=== PATIENT | female | born 1940 | race Caucasian/White ===

== ENCOUNTER 2017-02-25 05:52 | Day surgery (SDC) | payer MEDICARE, OTHER ==
[~2017-02-25] VITALS: Ht 149.9 cm; Wt 71.6 kg
[~2017-02-25 05:52] MED LIST: ASPIRIN EC81 MG PO; ATENOLOL100 MG PO; C-PAP; CALCIUM600 M1 PO; CORTEF10 MG PO; CORTEF5 MG PO; COUMADIN2 MG PO; DELSYM30 MG/5 M1 PO; DOXYCYCLINE HY100 M3 PO; ELIQ; FUROSEMIDE20 MG PO; HYDROCORTISONE5 M1 PO; IMODIUM2 MG PO; K-DUR20 ME2 PO; LASIX20 MG PO; LEVOTHROID100 MCG PO; LEVOTHROID125 MCG PO; LEVOTHYROXINE50 MC3 PO; LIVALO2 MG PO; NORVASC10 M2 PO; PANTOPRAZOLE SO20 MG PO; PANTOPRAZOLE SO40 M3 PO; PRAVASTATIN SOD40 M1 PO; PRIMIDONE50 M1 PO; PROMETH-CODEIN 65 ML PO; SUCRALFATE1 G PO; TENORMIN50 M1 PO; TERAZOSIN HCL1 M1 PO; TYLENOL PM EX-1 EAC4 PO; VALSARTAN-HCTZ1 EA13 PO; VALSARTAN-HCTZ1 EAC9 PO; VITAMIN D31000 UNI4 PO; WARFARIN SODIUM PO
[2017-02-25 07:45] LABS: INR 1.1 INR (0.9-1.1); PROTHROMBIN TIME 12.4 SECONDS (9.0-13.6)
[2017-02-26] MEDS ORDERED: HYDROCODON-ACE1 EA16 PO (07:17)
[2017-02-26] MEDS ORDERED: MACROBID 100 M100 M1 PO (11:05)
== END 2017-02-25 13:00 ==
LOC: SRG 05:52 → SHSC 05:52 → SRG 06:00 → ORW 08:36 → PACU 09:08 → SHSC 10:15 → SRG 13:00
PROVIDERS: Surgery
PROC: 0FT44ZZ Resection of Gallbladder, Percutaneous Endoscopic Approach (ICD-10-PCS; principal; 2017-02-25)
DX: K81.1 Chronic cholecystitis (principal); I10 Essential (primary) hypertension; I48.91 Unspecified atrial fibrillation; G47.30 Sleep apnea, unspecified; J44.9 Chronic obstructive pulmonary disease, unspecified; E78.5 Hyperlipidemia, unspecified; E03.9 Hypothyroidism, unspecified; Z88.1 Allergy status to other antibiotic agents; Z90.49 Acquired absence of other specified parts of digestive tract; Z98.41 Cataract extraction status, right eye; Z98.42 Cataract extraction status, left eye; Z98.890 Other specified postprocedural states; Z79.899 Other long term (current) drug therapy; Z79.82 Long term (current) use of aspirin
CPT/HCPCS: J1580; J7030

== ENCOUNTER 2017-02-26 07:02 | Observation (INO) | payer MEDICARE, OTHER ==
[~2017-02-26] VITALS: Ht 149.9 cm; Wt 72.3 kg
[2017-02-26] MEDS ORDERED: HYDROCODON-ACE1 EA16 PO (07:17)
[2017-02-26 08:04] LABS: BASO % 0.2 % (0-2); EOSINOPHIL ABSOLUTE COUNT 0.1 tho/cmm (0.0-0.7); HCT-HEMATOCRIT 38.2 % (34.0-49.0); HGB-HEMOGLOBIN 13.3 gm/dl (12.0-15.5); LYMPH % 16.9 % (20-45); LYMPH ABSOLUTE COUNT 0.8 tho/cmm (0.8-4.5); MCH (MEAN CORPUSCULAR HGB) 31.5 pg (28.0-32.0); MCHC MEAN CORPUSCULAR HGB CONC 34.8 % (32.0-36.0); MCV (MEAN CELL VOLUME) 90.5 fl (82.0-96.0); MEAN PLATELET VOLUME 10.3 cmc (9.4-12.4); MONO % 9.7 % (0-12); MONOCYTE ABSOLUTE COUNT 0.5 tho/cmm (0.0-1.2); NEUTROPHIL ABSOLUTE COUNT 3.5 tho/cmm (1.6-8.0); NEUTROPHIL-AUTOMATED 3.5 tho/cmm (1.6-8.0); NEUTROPHILS % 72.2 % (40-80); PLATELET COUNT 164 tho/cmm (150-450); RED BLOOD COUNT 4.22 mil/cmm (4.00-5.20); RED CELL DISTRIBUTION WIDTH 12.8 % (12.4-16.4); WHITE BLOOD COUNT 4.8 tho/cmm (4.0-10.0)
[2017-02-26 08:23] LABS: ALB/GLOB RATIO 1.1 (0.8-2.0); ALBUMIN 3.7 g/dl (3.5-5.0); ALKALINE PHOSPHATASE 69 U/L (33-138); ALT/SGPT 43 U/L (12-78); ANION GAP 14 mmol/L (0-20); AST/SGOT 45 U/L (10-40); BILIRUBIN,DIRECT 0.3 mg/dl (0.0-0.3); BILIRUBIN,INDIRECT 0.5 mg/dL (0.0-1.0); BILIRUBIN,TOTAL 0.8 mg/dl (0-1.5); BLOOD UREA NITROGEN 8 mg/dl (6-24); CALCIUM 8.5 mg/dl (8.5-10.5); CARBON DIOXIDE-VENOUS 26 mmol/L (22-32); CHLORIDE 91 mmol/l (96-110); GLUCOSE 126 mg/dL (70-110); LIPASE 82 U/L (73-393); POTASSIUM 3.8 mmol/L (3.7-5.1); SODIUM 127 mmol/L (135-145); eGFR VALUE FOR BLACK >90 mL/Min
[2017-02-26 09:49] LABS: URINE BILIRUBIN NEGATIVE (NEG); URINE BLOOD SMALL (NEG); URINE GLUCOSE (UA) NEGATIVE (NEG); URINE KETONE MODERATE (NEG); URINE LEUKOCYTE ESTERASE NEGATIVE (NEG); URINE NITRITE NEGATIVE (NEG); URINE PROTEIN NEGATIVE (NEG)
[2017-02-26 09:51] LABS: URINE APPEARANCE CLEAR; URINE COLOR PALE YELLOW
[2017-02-26 09:59] LABS: URINE EPITHELIAL CELLS N /[HPF] (0-10); URINE RBC 0-2 /[HPF] (0-5); URINE WBC RARE /[HPF] (0-5)
[2017-02-26] MEDS ORDERED: MACROBID 100 M100 M1 PO (11:05)
[2017-02-26 13:46] LABS: INR 1.1 INR (0.9-1.1); PROTHROMBIN TIME 12.4 SECONDS (9.0-13.6)
[2017-02-27 05:14] LABS: ANION GAP 10 mmol/L (0-20); BLOOD UREA NITROGEN 7 mg/dl (6-24); CALCIUM 8.1 mg/dl (8.5-10.5); CARBON DIOXIDE-VENOUS 28 mmol/L (22-32); CHLORIDE 103 mmol/l (96-110); CREATININE 0.64 mg/dl (0.50-1.10); GLUCOSE 88 mg/dL (70-110); POTASSIUM 3.4 mmol/L (3.7-5.1); SODIUM 138 mmol/L (135-145); eGFR VALUE FOR BLACK >90 mL/Min
== END 2017-02-27 14:15 ==
LOC: EDMED 07:02 → EMR2 12:50 → CAR1 14:15
PROVIDERS: Emergency Medicine; Internal Medicine Cardiovascular Disease; ADMIT Internal Medicine Interventional Cardiology
DX: R07.89 Other chest pain (principal); I10 Essential (primary) hypertension; E78.5 Hyperlipidemia, unspecified; E03.9 Hypothyroidism, unspecified; I48.0 Paroxysmal atrial fibrillation; K21.9 Gastro-esophageal reflux disease without esophagitis; E27.40 Unspecified adrenocortical insufficiency; E87.1 Hypo-osmolality and hyponatremia; E87.8 Other disorders of electrolyte and fluid balance, not elsewhere classified; Z88.1 Allergy status to other antibiotic agents; Z90.49 Acquired absence of other specified parts of digestive tract; Z79.82 Long term (current) use of aspirin; Z79.899 Other long term (current) drug therapy; Z98.890 Other specified postprocedural states
CPT/HCPCS: A9500; C8929; G0378; J2405; J2785; J7030; Q9967